=== PATIENT | male | born 1950 | race Caucasian/White ===

== ENCOUNTER → 2022-04-28 | Outpatient (REF) ==
[~2022-04-28] MED LIST: NO HOME MEDICATIONS
== END ==
LOC: LAB 08:12
DX: Z01.818 Encounter for other preprocedural examination (principal)

== ENCOUNTER → 2022-04-28 | Outpatient (CLI) | payer BC | LOC: AMSURD 08:06 | DX: Z01.810 Encounter for preprocedural cardiovascular examination (principal) ==